=== PATIENT | male | born 1955 | race Hispanic/Latino ===

== ENCOUNTER 2016-09-12 07:46 | Outpatient (CLI) | payer OTHER ==
--- NOTE | 2016-09-12 14:13 | Ultrasound Report ---
ULTRASOUND ABDOMEN: INDICATION: Hypercoagulable state. COMPARISON: None similar. FINDINGS: Abdominal sonography demonstrates diffuse hepatic echogenic coarsening. Grossly normal contours without definite focal suspicious lesions or biliary dilatation. No shadowing gallstones, pericholecystic fluid or positive sonographic Bach's sign, though slight gallbladder sludge not excluded. Gallbladder wall thickness towards the fundus approximately 3.4 mm. Common bile duct is 5 mm. Spleen 9.2 cm in length. No ascites. Normal imaged pancreas and aorta, though partly obscured due to bowel gas. Unremarkable IVC. Nonhydronephrotic kidneys, approximately 12.2 x 6.4 x 6.7 cm on the right and 12 x 5.1 x 5.8 cm on the left. CONCLUSION: Fatty liver and questionable mild gallbladder sludge, as described. Thank you for the opportunity to participate in this patient's care.
== END 2016-09-12 07:47 | disposition home or self-care (01) ==
LOC: US 07:46
DX: I74.11 Embolism and thrombosis of thoracic aorta (principal); K76.0 Fatty (change of) liver, not elsewhere classified
CPT/HCPCS: 76700